=== PATIENT | female | born 1990 | race Caucasian/White ===

== ENCOUNTER 2017-12-19 14:13 | Emergency (ER) | payer OTHER ==
[~2017-12-19] VITALS: Ht 160 cm; Wt 58.0 kg
[2017-12-19 14:20] VITALS: Ht 160 cm; Wt 58.0 kg
[2017-12-19] MEDS ORDERED: KETOROLAC TROMETHAMINE 30 MG/ML VIAL IV STA (14:33)
[2017-12-19] MEDS ORDERED: SODIUM CHLORIDE 0.9% 1000ML 1,000 ML IV STA (14:33)
[2017-12-19 15:04] LABS: BASO % 0.2 %; BASO ABS # 0.01 K/uL (0-0.2); EOS % 0.4 %; EOS ABS # 0.02 K/uL (0-0.5); HEMATOCRIT 41.1 % (37-47); HEMOGLOBIN 14.1 g/dL (12.0-16.0); IG# 0.01 K/uL (0.00-0.02); LYMPH % 21.4 %; LYMPH ABS # 0.96 K/uL (1.2-3.4); MEAN CELL VOLUME 91.5 fL (80-100); MEAN CORPUSCULAR HEMOGLOBIN 31.4 pg (25-34); MEAN CORPUSCULAR HGB CONC 34.3 g/dl (32-36); MEAN PLATELET VOLUME 10.5 fL (7.4-10.4); MONO % 11.8 %; MONO ABS # 0.53 K/uL (0.11-0.59); NEUT ABS # 2.96 K/uL (1.4-6.5); PLATELET COUNT 184 K/uL (130-400); RED CELL DISTRIBUTION WIDTH CV 12.8 % (11.5-14.5); RED CELL DISTRIBUTION WIDTH SD 42.8 fL (36.4-46.3); WHITE BLOOD COUNT 4.49 K/uL (4.8-10.8)
[2017-12-19] MEDS ORDERED: ALBU18002 INH (15:05)
[2017-12-19] MEDS ORDERED: DPPRI400 PO (15:05)
[2017-12-19] MEDS ORDERED: ALBINS/ INH (15:05)
[2017-12-19 15:21] LABS: BLOOD UREA NITROGEN 10 mg/dl (7-18); CALCIUM 9.6 mg/dl (8.5-10.1); CARBON DIOXIDE 25 mmol/L (21-32); CREATININE 0.74 mg/dl (0.60-1.20); GLUCOSE 76 mg/dl (70-99); POTASSIUM 3.6 mmol/L (3.5-5.1); SODIUM 136 mmol/L (136-145)
[2017-12-19 15:26] LABS: INFLUENZA B ANTIGEN Neg for Influ B (NEG)
--- NOTE | 2017-12-19 15:47 | DIAGNOSTIC IMAGING REPORT ---
CHEST 2 VIEWS ROUTINE CLINICAL HISTORY: cough and fever dyspnea COMPARISON STUDY: No previous studies for comparison. FINDINGS: The bones soft tissues and hemidiaphragms are normal. The cardiomediastinal silhouette is normal. The lungs are clear. The pulmonary vasculature is normal. IMPRESSION: Negative chest. The above report was generated using voice recognition software. It may contain grammatical, syntax or spelling errors. Electronically signed by: Soto Gruber M.D. 12/19/2017 3:46 PM Dictated Date/Time: 12/19/2017 3:46 PM
[2017-12-19] MEDS ORDERED: BENZ100C18 PO (16:22)
[2017-12-19 16:30] VITALS: BP 122/84; PULSE 105; TEMP 36.7; O2SAT 96
--- NOTE | 2017-12-19 17:37 | EMERGENCY ROOM VISIT NOTE ---
History Report prepared by Amie: Maureen Ortega Under the Supervision of: Dr. Jero Castillo D.O. 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 She states that on Sunday, she saw her doctor for a sore throat and he placed her on azithromycin. 2 days captain waiter, she lost her voice and yesterday she developed a runny nose which has worsened today. She states she has a cough which gives her pain in the middle of her neck and also radiates down into the upper portion of her chest. The patient states when she takes a deep breath, her chest vargas. She denies any fevers. No other complaints at this time. Source of History: patient Onset: 5 days captain waiter Position: nose, throat, neck, chest Quality: burning Associated Symptoms: No fevers Review of Systems See HPI for pertinent positives & negatives. A total of 10 systems reviewed and were otherwise negative. Past Medical & Surgical Medical Problems: (1) No significant past medical history Family History No pertinent family history Social History Smoking Status: Never Smoker Marital Status: single Occupation Status: employed Current/Historical Medications Scheduled Benzonatate (Tessalon Perles), 100 MG PO TID Medroxyprogesterone Acetate (Depo-Provera), 1 DOSE PO UD Scheduled PRN Albuterol Sulf (Proventil 0.083% 2.5MG/3ML), 2.5 MG INH QID PRN for SOB/Wheezing Albuterol Sulfate (Proair Respiclick), 1 PUFF INH UD PRN for SOB/Wheezing Allergies Coded Allergies: Diphenhydramine (Unverified Allergy, Unknown, ANAPHYLAXIS, 12/19/17) Latex1 -Allergic Contact Dermititis (Unverified Allergy, Unknown, UTI, ) Methylprednisolone (Unverified Allergy, Unknown, ANAPHYLAXIS, 12/19/17) Prednisone (Unverified Allergy, Unknown, ANAPHYLAXIS, 12/19/17) Sulfamethoxazole w/Trimethoprim (Unverified Allergy, Unknown, N/V/D, ) Sumatriptan (Unverified Allergy, Unknown, ANAPHYLAXIS, 12/19/17) Azithromycin (Unverified Adverse Reaction, Unknown, GI SYMPTOMS, 12/19/17) Physical Exam Vital Signs Date Time Temp Pulse Resp B/P (MAP) Pulse Ox O2 Delivery O2 Flow Rate FiO2 12/19/17 16:30 36.7 105 16 122/84 96 12/19/17 14:54 96 Room Air 12/19/17 14:20 36.7 105 16 122/84 99 Room Air Physical Exam GENERAL: Sitting up in bed, alert, well appearing, well nourished, no distress, non-toxic. Dry cough and hoarse voice. EYE EXAM: normal conjunctiva. OROPHARYNX: no exudate, no erythema, lips, buccal mucosa, and tongue normal and mucous membranes are moist. TMs are clear bilaterally. HEAD: Tenderness over frontal and maxillary sinuses NECK: supple, no nuchal rigidity, no adenopathy, non-tender LUNGS: Clear to auscultation. Normal chest wall mechanics HEART: no murmurs, S1 normal and S2 normal ABDOMEN: abdomen soft, non-tender, normo-active bowel sounds, no masses, no rebound or guarding. BACK: Back is symmetrical on inspection and there is no deformity, no midline tenderness, no CVA tenderness. SKIN: no rashes and no bruising UPPER EXTREMITIES: upper extremities are grossly normal. LOWER EXTREMITIES: No pitting edema. Calves equal bilaterally. NEURO EXAM: Normal sensorium, cranial nerves II-XII intact, normal speech, no gross weakness of arms, no gross weakness of legs. Medical Decision & Procedures ER Provider Diagnostic Interpretation: Radiology results as stated below per my review and the radiologist's interpretation: CHEST 2 VIEWS ROUTINE CLINICAL HISTORY: cough and fever dyspnea COMPARISON STUDY: No previous studies for comparison. FINDINGS: The bones soft tissues and hemidiaphragms are normal. The cardiomediastinal silhouette is normal. The lungs are clear. The pulmonary vasculature is normal. IMPRESSION: Negative chest. The above report was generated using voice recognition software. It may contain grammatical, syntax or spelling errors. Electronically signed by: Soto Gruber M.D. 12/19/2017 3:46 PM Laboratory Results 12/19/17 14:45 Red Blood Count 4.49, Mean Corpuscular Volume 91.5, Mean Corpuscular Hemoglobin 31.4, Mean Corpuscular Hemoglobin Concent 34.3, Mean Platelet Volume 10.5, Neutrophils (%) (Auto) 66.0, Lymphocytes (%) (Auto) 21.4, Monocytes (%) (Auto) 11.8, Eosinophils (%) (Auto) 0.4, Basophils (%) (Auto) 0.2, Neutrophils # (Auto ) 2.96, Lymphocytes # (Auto) 0.96, Monocytes # (Auto) 0.53, Eosinophils # (Auto ) 0.02, Basophils # (Auto) 0.01 12/19/17 14:45 Test 12/19/17 14:45 12/19/17 14:50 White Blood Count 4.49 K/uL (4.8-10.8) Red Blood Count 4.49 M/uL (4.2-5.4) Hemoglobin 14.1 g/dL (12.0-16.0) Hematocrit 41.1 % (37-47) Mean Corpuscular Volume 91.5 fL (80-100) Mean Corpuscular Hemoglobin 31.4 pg (25-34) Mean Corpuscular Hemoglobin Concent 34.3 g/dl (32-36) Platelet Count 184 K/uL (130-400) Mean Platelet Volume 10.5 fL (7.4-10.4) Neutrophils (%) (Auto) 66.0 % Lymphocytes (%) (Auto) 21.4 % Monocytes (%) (Auto) 11.8 % Eosinophils (%) (Auto) 0.4 % Basophils (%) (Auto) 0.2 % Neutrophils # (Auto) 2.96 K/uL (1.4-6.5) Lymphocytes # (Auto) 0.96 K/uL (1.2-3.4) Monocytes # (Auto) 0.53 K/uL (0.11-0.59) Eosinophils # (Auto) 0.02 K/uL (0-0.5) Basophils # (Auto) 0.01 K/uL (0-0.2) RDW Standard Deviation 42.8 fL (36.4-46.3) RDW Coefficient of Variation 12.8 % (11.5-14.5) Immature Granulocyte % (Auto) 0.2 % Immature Granulocyte # (Auto) 0.01 K/uL (0.00-0.02) Anion Gap 8.0 mmol/L (3-11) Est Creatinine Clear Calc Drug Dose 95.3 ml/min Estimated GFR () 129.6 Estimated GFR (Non- 111.8 BUN/Creatinine Ratio 13.8 (10-20) Calcium Level 9.6 mg/dl (8.5-10.1) Troponin I < 0.015 ng/ml (0-0.045) Influenza Type A Antigen Neg for Influ A (NEG) Influenza Type B Antigen Neg for Influ B (NEG) Laboratory results per my review. Medications Administered Medications (Trade) Dose Ordered Sig/Gabrielle Route Start Time Stop Time Status Last Admin Dose Admin Sodium Chloride 1,000 ml @ 999 mls/hr Q1H1M STAT IV 12/19/17 14:33 12/19/17 15:33 DC 12/19/17 14:33 999 MLS/HR Ketorolac Tromethamine (Toradol Inj) 30 mg NOW STAT IV 12/19/17 14:33 12/19/17 14:35 DC 12/19/17 14:33 30 MG ECG Per My Interpretation Indication: other (upper respiratory infection) Rate (beats per minute): 94 Rhythm: sinus rhythm Findings: other (normal axis, scooping ST segments, no PVCs) ED Course ED COURSE: Vital signs were reviewed and showed tachy The patients medical record was reviewed The above diagnostic studies were performed and reviewed. ED treatments and interventions as stated above. 1432: The patient was evaluated in room C12. A complete history and physical examination was performed. 1433: Ordered Toradol Inj 30 mg IV, Sodium Chloride 1000 ml @ 999 mls/hr IV 1645: Upon reevaluation, the patient is feeling better. I discussed my findings with the patient and she understands and agrees with the treatment plan. Based on the patients age, coexisting illnesses, exam and lab findings the decision to treat as an outpatient was made. The patient remained stable while under my care. The patient appeared well at the time of discharge. Medical Decision Differential diagnosis includes etiologies such as sepsis, UTI, pneumonia, metabolic, electrolyte abnormalities, cardiac sources, intracerebral event, toxicologic, neurologic, as well as others were entertained. Patient is a 27-year-old female who presents the ER for sore throat, cough, runny nose and congestion all which have been occurring since Sunday. She notes that she is also lost her voice. On exam she is a clear and non- productive cough. Does have tenderness over the frontal and maxillary sinuses. She has recently just finished up a dose of azithromycin. CBC and BMP were unremarkable. Troponin was negative. EKG shows no acute ischemia. With her symptoms I do believe that this most consistent with a viral URI especially since she has a laryngitis. Chest x-ray showed no acute infiltrate. Patient was updated bedside. She was given Toradol. She is discharged follow-up with PCP as an outpatient with a viral URI/bronchitis and laryngitis. Discussed with Pt concerning signs and symptoms to watch out for. Pt was instructed to follow up with their PCP and discussed with the patient their option to return to the ED at anytime for persistent or worsening symptoms. The appropriate anticipatory guidance and out-patient management, including indications for return to the emergency department, were explained at length to the patient and understood. Medication Reconcilliation Current Medication List: was personally reviewed by me Blood Pressure Screening Patient's blood pressure: Normal blood pressure Impression Primary Impression: Upper respiratory infection Additional Impression: Laryngitis Scribe Attestation The scribe's documentation has been prepared under my direction and personally reviewed by me in its entirety. I confirm that the note above accurately reflects all work, treatment, procedures, and medical decision making performed by me. Departure Information Dispostion Home / Self-Care Prescriptions Benzonatate (TESSALON PERLES) 100 Mg Cap 100 MG PO TID for 5 Days, #15 CAP Prov: Jero Castillo, DO 12/19/17 Forms HOME CARE DOCUMENTATION FORM, IMPORTANT VISIT INFORMATION Patient Instructions My [facility] Additional Instructions Please follow up with your primary care doctor with in the next 24 hours. Any worsening of your symptoms, please return to the ED immediately. This includes any fevers greater than 100.4, worsening pain, chest pain, shortness breath, persistent nausea, vomiting, unable to eat or drink, or any other concerning signs or symptoms from your standpoint. Please take Tylenol or Motrin as needed for pain and fevers. Problem Qualifiers Primary Impression: Upper respiratory infection URI type: unspecified URI Qualified Codes: J06.9 - Acute upper respiratory infection, unspecified
== END 2017-12-19 16:31 | disposition home or self-care (01) ==
LOC: C.EDB 14:18 → C.EDC 16:31
DX: J06.9 Acute upper respiratory infection, unspecified (principal); J04.0 Acute laryngitis; Z88.1 Allergy status to other antibiotic agents; Z88.8 Allergy status to other drugs, medicaments and biological substances; Z88.2 Allergy status to sulfonamides; Z91.040 Latex allergy status